=== PATIENT | male | born 1940 | race Caucasian/White ===

== ENCOUNTER → 2016-08-02 | Outpatient (CLI) | payer OTHER | LOC: BHLMT 11:00 | PROVIDERS: ATTEND Internal Medicine Cardiovascular Disease | DX: I63.9 Cerebral infarction, unspecified (principal); I25.10 Atherosclerotic heart disease of native coronary artery without angina pectoris; I10 Essential (primary) hypertension; E78.00 Pure hypercholesterolemia, unspecified | CPT/HCPCS: 93005-PO ==

== ENCOUNTER → 2017-02-06 | Outpatient (CLI) | payer OTHER ==
[~2017-02-06] MED LIST: IOPAMIDOL (ISOVUE 370) 100 ML BTL IV ONE
== END ==
LOC: FIMAGING 14:59
PROVIDERS: ATTEND Internal Medicine Cardiovascular Disease
DX: I25.10 Atherosclerotic heart disease of native coronary artery without angina pectoris (principal); R25.2 Cramp and spasm
CPT/HCPCS: 75635; Q9967

== ENCOUNTER → 2017-03-24 | Outpatient (CLI) | payer OTHER | LOC: FIMAGING 13:37 | PROVIDERS: ATTEND Surgery | DX: I83.93 Asymptomatic varicose veins of bilateral lower extremities (principal) ==

== ENCOUNTER 2017-04-18 06:33 | Inpatient (IN) | payer OTHER ==
--- NOTE | 2017-04-17 11:07 | GHP ---
[f rep st] PREOP HISTORY AND PHYSICAL DATE OF ADMISSION: 04/18/2017 HISTORY OF PRESENT ILLNESS: The patient is a 76-year-old male who was referred to us for peripheral arterial disease. Several months ago, patient began to experience right greater than left calf pain, most notably while playing pickle ball. The pain was relieved by rest. The patient does notice nitin e leg pain versus leg cramps at night, particularly when he has not hydrated well. Per chart review, his symptoms were initially thought to be secondary to a statin therapy; however, did not resolve af ter stopping his atorvastatin. He was then scheduled for a CT angiogram. This was notable for sever e bilateral lower extremity peripheral vascular disease. Specifically, he had a high-grade 90% steno sis of the distal left common femoral artery to near occlusion. There was moderate stenosis of the r ight common femoral artery at 50%. He had segmental disease throughout his SFAs. He had mild athero sclerotic calcification of the popliteal arteries with 3-vessel runoff on the right and 2-vessel runo ff on the left. Since then, he has also had preoperative vein mapping for potential saphenous graft harvesting. On t he right lower extremity, his saphenous vein measured between 2.3 and 6 mm and on the left measured b etween 1.8 and 7 mm. There were also some venous varicosities seen at and below the right knee and i n the left groin and thigh. He is now ready to pursue bilateral femoral-popliteal artery bypass with possible reverse saphenous v ein graft versus synthetic Impra graft. His disease is worse on the left, and so we will begin with the left fem-pop. Right fem-pop will be postponed for a later date. Risks and options have been ful ly discussed including but not limited to bleeding, infection, leg ischemia, limb loss, clotting, nee d for revision and/or other surgery, injury to a nerve, damage to surrounding structures, and other p roblems, and he requests to proceed. PAST MEDICAL HISTORY: Again taken from patient and chart review includes bladder cancer, chronic bro nchitis, history of cerebrovascular accident, coronary artery disease with an isolated LAD lesion whi ch could not be angioplastied and collaterals have been documented, depression, hypercholesteremia, h ypertension, hypothyroidism, lumbar spine pain, orthostatic hypotension. PAST SURGICAL HISTORY: Includes cystectomy, ileal conduit creation, septoplasty, tonsillectomy, sania oidectomy. Also, past procedures include colonoscopy and EGDs. MEDICATIONS: Include aspirin, dipyridamole, levothyroxine, Lipitor. ALLERGIES: Plavix, Levaquin, prednisone, tramadol. FAMILY MEDICAL HISTORY: Prostate cancer. SOCIAL HISTORY: The patient is a former tobacco smoker with 28 pack-years, quit in 1988. He is a cu rrent some day smoker. He has 2 children. He is retired from a job in data processing. REVIEW OF SYSTEMS: Negative aside from that in the HPI. PHYSICAL EXAMINATION: GENERAL: Reveals a 76-year-old male, alert and oriented x3 and in no acute di stress. HEENT: Normocephalic, atraumatic. No scleral icterus. CHEST: Clear to auscultation bilat erally without murmurs. ABDOMEN: Soft, nontender. Ileal conduit. RESPIRATORY: Clear to auscultat ion bilaterally. SKIN: Warm and dry. EXTREMITIES: Lower extremity hair loss. No edema. Audible pulses with Doppler. PSYCH: Normal mood and affect. IMPRESSION: This is a 76-year-old male with limiting claudication, symptomatically right worse than left, but radiologically left worse than right. PLAN: Plan is to proceed with bilateral femoral-popliteal bypasses with possible saphenous vein marquis ts. Again, we will start with the left side, and he will plan for right leg surgery at a later date. Risks and options have been discussed, and he requests to proceed. Seen and examined with Dr. Liang. /[id number]/MODL
[2017-04-18] MEDS ORDERED: ceFAZolin 2 GM/SWFI 2 GM/20 ML SYR IVP ONE (06:38)
[2017-04-18] MEDS ORDERED: LR 1,000 ML IV ONE (06:40)
[2017-04-18] MEDS ORDERED: LIDOCAINE 1% 2 ML INJ ID PRN (06:40)
[2017-04-18] MEDS ORDERED: PROTAMINE SULFATE 50 MG/5 ML VIAL IVP ONE (07:45)
[2017-04-18] MEDS ORDERED: THROMBIN (BOVINE) 20,000 UNIT SPRAY TP ONE (07:45)
[2017-04-18] MEDS ORDERED: PAPAVERINE HCL 60 MG/2 ML SDV ONE (07:45)
[2017-04-18] MEDS ORDERED: BUPIVACAINE 0.5% 10 ML SDV ONE (07:46)
[2017-04-18] MEDS ORDERED: IOTHALAMATE MEG (CONRAY) 50 ML VIAL IV ONE (07:46)
--- NOTE | 2017-04-18 07:54 | PDHPUP ---
History & Physical Update H&P update statement: This history and physical update is based on an assessment of the patient which was completed after admission or registration (within 24 hours), but prior to the surgery/procedure. H&P update: H&P reviewed & patient examined, no change in patient's condition since H&P completed
[2017-04-18 08:01] LABS: PLATELET COUNT 213 10^3/uL (150-400)
--- NOTE | 2017-04-18 08:05 | PDANEPAE ---
ANE History of Present Illness 76 yo for fem-pop ANE Past Medical History - Cardiovascular History Hx Hypertension: No Hx Arrhythmias: No Hx Chest Pain: No Hx Coronary Artery / Peripheral Vascular Disease: Yes Hx CHF / Valvular Disease: No Hx Palpitations: No Cardiovascular History Comment: 1999, 100% LAD good collateral circulation, no Stent. - Pulmonary History Hx COPD: Yes Hx Asthma/Reactive Airway Disease: No Hx Recent Upper Respiratory Infection: No Hx Oxygen in Use at Home: No Hx Sleep Apnea: No Sleep Apnea Screening Result - Last Documented: Negative Pulmonary History Comment: Unknown regarding COPD, though pt says was told by another MD that he has it - Neurologic History Hx Cerebrovascular Accident: Yes Hx Seizures: No Hx Dementia: No Neurologic History Comment: CVA 09/19/2010 during the night, had Left sided facial weakness. minorissues with - Endocrine History Hx Diabetes: No - Renal History Hx Renal Disorders: Yes Renal History Comment: Bladder Cancer - surgery to include prostatectomy 2010. Urostomy with surgery - Liver History Hx Hepatic Disorders: No - Neurological & Psychiatric Hx Hx Neurological and Psychiatric Disorders: Yes Neurological / Psychiatric History Comment: Some situational depression with recent Lung Nodule diagnosis. neuropathy, tremor - Cancer History Hx Cancer: Yes Cancer History Comment: Bladder. Question Right Lung Nodule - to be diagnosed with biopsy - Congenital Disorder History Hx Congenital Disorders: No - GI History Hx Gastrointestinal Disorders: No Gastrointestinal History Comment: Colostomy 02/2015 negative findings - Other Health History Other Health History: 04/2013 Pyeloidal Cyst. right hand bruising. 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 11/11/2010 & 05/25/2010 : TURBP. 1974 Septoplasty. 194 T&A ANE Review of Systems Review of Systems: - Exercise capacity METS (RN): 5 METS ANE Patient History - Allergies Allergies/Adverse Reactions: clopidogrel Allergy (Unknown, Verified 04/18/17 07:01) levofloxacin [From Levaquin] Allergy (Unknown, Verified 04/17/17 13:33) prednisone Allergy (Unknown, Verified 04/17/17 13:34) tramadol Allergy (Unknown, Verified 04/17/17 13:34) - Home Medications Home medications: home medication list seen and reviewed Home Medications: Aspirin [Aspirin 81mg (*)] 11/05/13 [Last Taken 04/17/17] Atorvastatin Calcium [Lipitor 40 mg (*)] 11/05/13 [Last Taken 04/18/17 05:00] Dipyridamole 11/05/13 [Last Taken 04/17/17] Herbals/Supplements -Info Only 11/05/13 [Last Taken 04/17/17] Levothyroxine [Synthroid 50 mcg (*)] 11/05/13 [Last Taken 04/18/17 05:00] [place]-3 Fatty Acids [Fish Oil 1000 mg (*)] 11/05/13 [Last Taken 03/17/17] - NPO status NPO Status: no food or drink >8 hours NPO Since - Liquids (Date): 04/18/17 NPO Since - Liquids (Time): 05:00 NPO Since - Solids (Date): 04/17/17 NPO Since - Solids (Time): 19:00 - Anes Hx Anes Hx: no prior problems - Smoking Hx Smoking Status: Former smoker - Family Anes Hx Family Hx Anesthesia Complications: none ANE Labs/Vital Signs - Labs Result Diagrams: 04/18/17 07:18 04/18/17 07:18 - Vital Signs Blood Pressure: 143/77 Heart Rate: 57 Respiratory Rate: 16 O2 Sat (%): 96 Height: 6 ft 2 in Weight: 78.018 kg ANE Physical Exam - Airway Neck exam: FROM Mallampati Score: Class 2 Mouth exam: normal dental/mouth exam - Pulmonary Pulmonary: no respiratory distress - Cardiovascular Cardiovascular: regular rate and rhythym - ASA Status ASA Status: III ANE Anesthesia Plan Anesthesia Plan: general endotracheal anesthesia
[2017-04-18] MEDS ORDERED: REMIFENTANIL HCL 1 MG VIAL ONE ×2 (08:13→10:35)
[2017-04-18] MEDS ORDERED: PROPOFOL/EMULSION 500 MG/50 ML BOTTLE IV ONE (08:14)
[2017-04-18] MEDS ORDERED: fentaNYL 250 MCG/5 ML INJ ONE (08:14)
[2017-04-18] MEDS ORDERED: PROPOFOL 200 MG/20 ML VIAL ONE (10:35)
[2017-04-18] MEDS ORDERED: HEPARIN 10,000 UNIT/10 ML MDV (1,000 UNIT/ML) ONE (11:20)
[2017-04-18] MEDS ORDERED: ceFAZolin 1 GM VIAL ONE (11:20)
[2017-04-18] MEDS ORDERED: ONDANSETRON 4 MG/2 ML VIAL ONE (11:20)
[2017-04-18] MEDS ORDERED: ROCURONIUM 50 MG/5 ML VIAL ONE (11:20)
[2017-04-18] MEDS ORDERED: PHENYLEPHRINE HCL 100 MCG/ML SYR ONE (11:28)
[2017-04-18] MEDS ORDERED: HYDROmorphONE/DILAUDID 1 MG/ML INJ IVP PRN ×2 (11:44→11:57)
[2017-04-18] MEDS ORDERED: ONDANSETRON 4 MG/2 ML VIAL IVP PRN ×2 (11:44→11:57)
[2017-04-18] MEDS ORDERED: fentaNYL 100 MCG/2 ML INJ IVP PRN (11:44)
[2017-04-18] MEDS ORDERED: NALOXONE HCL 0.4 MG/ML INJ IVP PRN (11:44)
--- NOTE | 2017-04-18 11:44 | POSTANESTH ---
Post Anesthetic Evaluation Cardiovascular Status: Normal, Stable Respiratory Status: Normal, Stable Level of Consciousness/Mental Status: Can Participate in Eval Pain Control: Adequate, Prn Tx Ordered Nausea/Vomiting Control: Adequate, Prn Tx Ordered Complications Possibly Related to Anesthesia: None Noted
[2017-04-18] MEDS ORDERED: NS W/ 20 KCl/L 1,000 ML IV SCH (12:00)
--- NOTE | 2017-04-18 12:04 | POSTOPPROG ---
Post Op Note Date of Operation: 04/18/17 Surgeon: Neal Liang Technology Support Analyst: Kadie Saravia Anesthesiologist: Babar Sauceda Anesthesia: GET(General Endotracheal) Pre-op Diagnosis: severe PAD, claudication Post-op Diagnosis: same Procedure: left fem pop bypass c impra graft and LAN ENGINEER endarterectomy and profundoplasty Findings: wide spread thick irregular calcified plaque Inf/Abcess present in the surg proc area at time of surgery?: No EBL: 50-100 Complications: none Specimen(s): plaque to pathology
[2017-04-18] MEDS ORDERED: HYDROmorphONE/DILAUDID 2 MG/ML INJ IVP PRN (12:14)
--- NOTE | 2017-04-18 15:40 | ASMTCMCOM ---
CM Note CM Note Notes: 76yr old male admitted for Occluded L femoral artery. He has a Hx of Prostate and Bladder CA, CVA, CAD, HTN, Lumbar back pain, Depression. Patient had L fem bipop surgery today and at a later date will need a R fem bipop surgery. Therapies to CELINA castrejon to follow for discharge needs. Date Signed: 04/18/2017 03:39 PM Electronically Signed By:Carrie Barba LCSW
[2017-04-18] MEDS: OXYCODONE/APAP 5/325 TAB PO PRN (23:23)
--- NOTE | 2017-04-19 10:12 | SOAPPROG ---
SOAP Progress Note Assessment/Plan: Assessment/Plan: 76 Y M s/p L fempop bypass c impra graft and endarterectomy. POD#1. Episode of hypotension and bradycardia when moved from bed to chair this am. Quickly resolved. No intervention required. Continue to monitor. Wounds intact. Graft patent--L pedal pulses are palpable. Foot is warm. PT/OT. Restrictions discussed. Appreciate labs. Suspect drop in H&H was during surgery--do not suspect active bleeding. Dispo: SDU. If BP and HR stable throughout am then transfer to [facility]. S: Not too much pain. No complaints. Motivated. O: gen: alert, nad no wob rrr abd soft inc nickel sized shadowing on distal dressing. otherwise well dressed and clean. Min swelling. feet warm. L pedal pulses palpable. 04/19/17 10:08 Objective: Vital Signs Temp Pulse Resp BP Pulse Ox 37.0 C 62 14 121/69 H 97 04/19/17 08:00 04/19/17 08:00 04/19/17 08:00 04/19/17 08:00 04/19/17 08:00 Laboratory Results 04/19/17 05:35 04/19/17 05:35 04/18/17 04/19/17 04/20/17 05:59 05:59 05:59 Intake Total 4530 Output Total 2100 Balance 2430 ICD10 Worksheet Patient Problems: Problems Problem Status Onset Carcinoma of bladder Active
[2017-04-19] MEDS ORDERED: BISACODYL 10 MG SUPP PR PRN (11:18)
--- NOTE | 2017-04-19 15:25 | ASMTCMCOM ---
CM Note CM Note Notes: Met with patient to begin conversation about d/c planning - he is POD #1 L fem/pop bypass. Initial PT eval suggests inpatient rehab, but I do not anticipate that patient will need that level of care. His plan is to d/c home w friends (one being his ex ) and stay with them until 05/02. One of the roommates has DME including a 4WW and shower bench. Case Management will continue to assess patient's needs on a daily basis. Date Signed: 04/19/2017 03:24 PM Electronically Signed By:Marie Caldera RN
[2017-04-19] MEDS: DOCUSATE SODIUM 100 MG CAP PO SCH (20:59)
[2017-04-20] MEDS: OXYCODONE/APAP 5/325 TAB PO PRN ×2 (03:35→23:55)
--- NOTE | 2017-04-20 08:44 | SOAPPROG ---
SOAP Progress Note Assessment/Plan: Assessment: sp left fempop/ doing well/ pulses good/ wounds ok/ pain control ok Plan:pt and rehab eval 04/20/17 08:42 Objective: Vital Signs Temp Pulse Resp BP Pulse Ox 36.8 C 57 L 18 128/71 H 92 04/20/17 07:50 04/20/17 07:50 04/20/17 07:50 04/20/17 07:50 04/20/17 07:50 Laboratory Results 04/19/17 05:35 04/19/17 05:35 04/19/17 04/20/17 04/21/17 05:59 05:59 05:59 Intake Total 4530 550 Output Total 9028 7441 150 Balance 8925 -0355 -229 ICD10 Worksheet Patient Problems: Problems Problem Status Onset Carcinoma of bladder Active
[2017-04-20] MEDS: ENOXAPARIN 40 MG/0.4 ML SYR SC SCH (09:30)
[2017-04-20] MEDS: DOCUSATE SODIUM 100 MG CAP PO SCH ×2 (09:30→20:52)
--- NOTE | 2017-04-20 12:46 | ASMTCMCOM ---
CM Note CM Note Notes: 04/20/2017 Case Management Note Met w/pt. Pt living with friend Ruddy Vegas [phone] temporarily with plans to move to [place] in the middle of April. Pt has support from Henri Sharma [phone] and from Wilfredo Sharma [phone]. OT recommending SNF. PT recommending Inpatient Rehab as of yesterday. Notified Yasmine of referral at inpatient rehab. Discussed with pt. Discussed need for SNF rehab if inpatient rehab is not able to take pt. Pt in agreement Faxed ref[facility] and [facility]. Case Management d/c poc: SNF rehab pending acceptance. Case Management to follow. Date Signed: 04/20/2017 12:45 PM Electronically Signed By:Denisse Alford RN
[2017-04-21] MEDS: ENOXAPARIN 40 MG/0.4 ML SYR SC SCH (09:51)
[2017-04-21] MEDS: DOCUSATE SODIUM 100 MG CAP PO SCH ×2 (09:51→20:59)
--- NOTE | 2017-04-21 10:00 | SOAPPROG ---
SOAP Progress Note Assessment/Plan: Assessment: Assessment/Plan: 76 Y M s/p L fempop bypass c impra graft and endarterectomy. S: Eager to go home. Pain is well controlled. Getting out of bed without issue O: Afebrile Alert No wob abdomen soft left leg: incisions cdi, pedal pulses palpable, feet warm Plan: Discharge today, pending SNF placement. 04/21/17 10:01 Objective: Vital Signs Temp Pulse Resp BP Pulse Ox 36.6 C 72 16 116/74 92 04/21/17 08:00 04/21/17 08:00 04/21/17 08:00 04/21/17 08:00 04/21/17 08:00 Laboratory Results 04/19/17 05:35 04/19/17 05:35 04/20/17 04/21/17 04/22/17 05:59 05:59 05:59 Intake Total 550 400 Output Total 8523 3357 Balance -4377 -567 ICD10 Worksheet Patient Problems: Problems Problem Status Onset Carcinoma of bladder Active
--- NOTE | 2017-04-21 13:49 | PDIAF ---
- Diagnosis Code Status: Full Code - Medication Management Discharge Medications: Medications to Continue on Transfer Aspirin [Aspirin 81mg (*)] 81 mg PO DAILY 11/05/13 [Last Taken 04/17/17] Atorvastatin Calcium [Lipitor 40 mg (*)] 80 mg PO DAILY 11/05/13 [Last Taken 05:00] Dipyridamole 75 mg PO TID 11/05/13 [Last Taken 04/17/17 21:00] Herbals/Supplements -Info Only 1 each PO DAILY 11/05/13 [Last Taken 04/17/17] Levothyroxine [Synthroid 50 mcg (*)] 50 mcg PO DAILY06 11/05/13 [Last Taken ] Multivitamins [Multivitamin (*)] 1 each PO DAILY 04/18/17 [Last Taken 04/17/17] Discharge Medications: Refer to the Discharge Home Medication list for PRN reason. PICC Care - Routine: N/A - Orders Services needed: Registered Nurse, Physical Therapy, Occupational Therapy Isolation Type: None Diet Recommendation: no restrictions on diet Diet Texture: Regular Texture Diet Weigh Patient: weekly Ambrocio: Not applicable Activity/Weight Bearing Restrictions: He can ambulate without restrictions - Follow Up Care Current Providers and Referrals: Kwasi Stein MD [Primary Care Provider] - Neal Liang MD [Medical Doctor] - (Follow up in our office in 7-10 days.)
--- NOTE | 2017-04-21 17:31 | ASMTCMCOM ---
CM Note CM Note Notes: Spoke w/surgical LIME PULLER Selena, pt unable to go to [facility] today d/t no bed availability. Will have bed tomorrow, pt notified and discussed with RN, Surgery to cancel discharge. DC Plan: SNF/[facility] Date Signed: 04/21/2017 05:31 PM Electronically Signed By:Marion Laboy RN
--- NOTE | 2017-04-21 17:34 | GOP ---
[f rep st] OPERATIVE REPORT DATE OF OPERATION: 04/18/2017 SURGEON: Neal Liang MD CHILDCARE AIDE: AVEL Restrepo. PREOPERATIVE DIAGNOSIS: Occluded superficial femoral artery on the left with severe critical stenosis of the left common femoral artery. POSTOPERATIVE DIAGNOSIS: same PROCEDURE PERFORMED: Left iliofemoral bypass with profundoplasty, and common femoral artery endarterectomy. FINDINGS: The patient was found to have a soft popliteal artery in the proximal popliteal space, but the SFA and proximal popliteal were completely occluded. The common femoral was nearly completely occluded with severe calcified plaque extending up to the external iliac artery. At the completion of the procedure, he had palpable pedal pulses. DESCRIPTION OF PROCEDURE: The patient was brought to the operating room where he received satisfactory general endotracheal anesthesia. He was placed in supine position with both legs prepped and draped in usual sterile fashion. A short incision was made in the left groin. Dissection extended down through subcutaneous tissue, the superficial fascia. The common femoral, profunda femoris and external iliac were all dissected free and encircled with Vesseloops. This required partial division of the inguinal ligament, but it was required for proximal control above the plaque as well as getting an open vessel. The common femoral artery was completely calcified and nearly totally occluded. A 2nd incision was made in the distal thigh in the Milton's canal, carried carefully down, avoiding any injury to the saphenous vein. The popliteal artery was dissected free and controlled with Vesseloops. Dissection extended down behind the knee until the soft portion of the popliteal artery was identified, and this vessel was controlled with Vesseloops. After adequate exposure was achieved, the patient was systemically heparinized. The vessels were occluded at the groin level and the arteriotomy was made in the common femoral artery. This extended up into the external iliac artery and down to the profunda femoris artery. The endarterectomy was then done with removal of a large amount of plaque in continuity. This extended down to the origin of the profunda, which was endarterectomized as well, establishing back flow through the profunda. The plaque was removed. All vessels were flushed and appeared to have adequate inflow and adequate backflow from the profunda femoris artery. At that point, an 8-5 graduated Impra graft was then selected. It was secured to the profunda femoris and common femoral artery as a profundoplasty and anterior closure with a running Hemashield 6 suture. After completion of the suture line, all vessels were flushed. The bypass graft was crossclamped and flow was first established to the [place] SFA and then back down to the profunda femoris. The suture line appeared to be hemostatic except for [address] that was corrected with interrupted 6-0 Prolene suture. The bypass graft was then tunneled subsartorially down to the Milton's canal, at which point it was trimmed to the appropriate length and an end-to-side anastomosis was made to the popliteal artery which had been opened for 1.5 cm. This suture line was also done with a Hemashield 6 suture. Flow was then reestablished through the bypass graft, and a pulsatile flow was established in the popliteal artery below the knee as well as palpable pedal pulses eventually could be felt. The suture lines appeared to be hemostatic. Heparin was reversed with protamine. The wounds were sprayed with some topical thrombin and then closed in multiple layers using 2-0 Vicryl for the fascia, 3-0 Vicryl for the subcu and 4-0 Monocryl subcuticular stitch for the skin. All layers were infiltrated with 0.5% Marcaine. The wounds were dressed. He tolerated the procedure well, was taken to the recovery room in good condition. There were no complications. /[id number]/MODL MTDD
[2017-04-22 04:55] VITALS: O2SAT 94
--- NOTE | 2017-04-22 08:36 | PDIAF ---
- Diagnosis Diagnosis: s/p L fem pop Code Status: Full Code - Medication Management Discharge Medications: Medications to Continue on Transfer Aspirin [Aspirin 81mg (*)] 81 mg PO DAILY 11/05/13 [Last Taken 04/17/17] Atorvastatin Calcium [Lipitor 40 mg (*)] 80 mg PO DAILY 11/05/13 [Last Taken 05:00] Dipyridamole 75 mg PO TID 11/05/13 [Last Taken 04/17/17 21:00] Herbals/Supplements -Info Only 1 each PO DAILY 11/05/13 [Last Taken 04/17/17] Levothyroxine [Synthroid 50 mcg (*)] 50 mcg PO DAILY06 11/05/13 [Last Taken ] Multivitamins [Multivitamin (*)] 1 each PO DAILY 04/18/17 [Last Taken 04/17/17] Discharge Medications: Refer to the Discharge Home Medication list for PRN reason. PICC Care - Routine: N/A - Orders Services needed: Registered Nurse, Physical Therapy, Occupational Therapy Isolation Type: None Diet Recommendation: no restrictions on diet Diet Texture: Regular Texture Diet Weigh Patient: weekly Ambrocio: Not applicable Activity/Weight Bearing Restrictions: He can ambulate without restrictions - Follow Up Care Current Providers and Referrals: Neal Liang MD [Medical Doctor] - (Follow up in our office in 7-10 days.) Kwasi Stein MD [Primary Care Provider] -
--- NOTE | 2017-04-22 08:39 | PDDCSUM ---
Discharge Summary Discharge Summary: DISCHARGE SUMMARY Date of Admission April 18 Date of Discharge April 22 DISCHARGE DIAGNOSES -life limiting claudication HOSPITAL COURSE The patient was admitted and taken to the operating room on the where he underwent uneventful left femoral popliteal bypass. They were subsequently taken to the PACU and then the general medical floor. The hospital course was uneventful, their diet was advanced to a regular diet which was well tolerated and their pain was well controlled. He had consultations from both Physical and Occupational therapy who is request [facility]. He was subsequently discharged there in stable condition on the morning of the . DISCHARGE MEDICATIONS All home medications restarted, patient was taking [id number] ibuprofen as needed for pain DISPOSITION [facility] FOLLOW UP Follow up with Dr. Liang in the office in 10-14 days for a general post- operative visit
[2017-04-22] MEDS: ENOXAPARIN 40 MG/0.4 ML SYR SC SCH (09:13)
[2017-04-22] MEDS: DOCUSATE SODIUM 100 MG CAP PO SCH (09:13)
--- NOTE | 2017-04-22 10:36 | ASMTLACE ---
JORDANE Length of stay for Answers: 4-6 days current admission Acuity / Level of Answers: Yes Care: Did the patient have an inpatient admission? Comorbidities - select Answers: Any tumor (including all that apply lymphoma or leukemia) Cerebrovascular disease (CVA, TIA, aneurysms, vasc ular dementia) Chronic pulmonary disease Coronary Atery Disease Peripheral vascular disease # of Emergency department Answers: 0 visits in the last 6 months Social determinants Answers: Mental health diagnosis (anxiety, depression, pers onality disorders, etc.) Score: 18 Date Signed: 04/22/2017 10:35 AM Electronically Signed By:Marion Laboy RN
[2017-04-22 12:41] VITALS: BP 119/65; PULSE 71; RESP 16; TEMP 98.3
--- NOTE | 2017-04-22 17:50 | ASDISCHSUM ---
Discharge Information Plan Status:SNF Medically Cleared to Leave: Discharge Date:04/22/2017 03:56 PM CM D/C Disposition:Half-Way Facility ADT D/C Disposition:Half-Way Facility Projected Discharge Date:04/22/2017 11:00 AM Transportation at D/C:Wheelchair Van Discharge Delay Reason: Follow-Up Date:04/22/2017 11:00 AM Discharge Slot: Final Diagnosis: Occlusion L Femoral Artery Placement Information Referral Type:*Retirement/SNF Referral ID:[facility]-[id number] Provider Name:Polina Capps Address 1:[address] [facility] Phone Number: Address 2: Fax Number: City:[place] Selection Factors: State:[place] Patient Contact Information Contact Name:SUSANA Relationship:Son Address:[address] [place] [address] Work Phone: City:[facility] Alternate Phone: State/[facility] Code:[place] [address] Email: Financial Information Financial Class:Medicare Primary Plan Desc:MEDICARE INPATIENT Primary Plan Number:[id number] Secondary Plan Desc:JELLY Secondary Plan Number:[id number] Assessment Information LACE LACE Length of stay for Answers: 4-6 days current admission Acuity / Level of Answers: Yes Care: Did the patient have an inpatient admission? Comorbidities - select Answers: Any tumor (including all that apply lymphoma or leukemia) Cerebrovascular disease (CVA, TIA, aneurysms, vasc ular dementia) Chronic pulmonary disease Coronary Atery Disease Peripheral vascular disease # of Emergency department Answers: 0 visits in the last 6 months Social determinants Answers: Mental health diagnosis (anxiety, depression, pers onality disorders, etc.) Score: 18 Date Signed: 04/22/2017 10:35 AM Electronically Signed By:Marion Laboy RN [facility] CM Progress Note CM Note CM Note Notes: 76yr old male admitted for Occluded L femoral artery. He has a Hx of Prostate and Bladder CA, CVA, CAD, HTN, Lumbar back pain, Depression. Patient had L fem bipop surgery today and at a later date will need a R fem bipop surgery. Therapies to [facility] castrejon to follow for discharge needs. Date Signed: 04/18/2017 03:39 PM Electronically Signed By:Carrie Barba LCSW [facility] CEL[facility] Progress Note CM Note CM Note Notes: Met with patient to begin conversation about d/c planning - he is POD #1 L fem/pop bypass. Initial PT cash suggests inpatient rehab, but I do not anticipate that patient will need that level of care. His plan is to d/c home w friends (one being his ex ) and stay with them until 05/02. One of the roommates has DME including a 4WW and shower bench. Case Management will continue to assess patient's needs on a daily basis. Date Signed: 04/19/2017 03:24 PM Electronically Signed By:Marie Caldera RN [facility] Progress Note CM Note CM Note Notes: 04/20/2017 Case Management Note Met w/pt. Pt living with friend Ruddy Vegas [phone] temporarily with plans to move to [place] in the middle of April. Pt has support from Henri Sharma [phone] and from Wilfredo Sharma [phone]. OT recommending SNF. PT recommending Inpatient Rehab as of yesterday. Notified Yasmine of referral at inpatient rehab. Discussed with pt. Discussed need for SNF rehab if inpatient rehab is not able to take pt. Pt in agreement Faxed referrals to [facility] and [facility]. Case Management d/c poc: SNF rehab pending acceptance. Case Management to follow. Date Signed: 04/20/2017 12:45 PM Electronically Signed By:Denisse Alford RN [facility] CM Progress Note CM Note CM Note Notes: Spoke w/surgical DATA WAREHOUSE ARCHITECT Selena, pt unable to go to [facility] today d/t no bed availability. Will have bed tomorrow, pt notified and discussed with RN, Surgery to cancel discharge. DC Plan: SNF/Power[facility] Date Signed: 04/21/2017 05:31 PM Electronically Signed By:Marion Laboy RN Case Management Discharge Plan Note Case Management Discharge Discharge Order Complete? Answers: Yes Patient to Obtain Answers: Other Notes: [facility] Medications Transportation Arranged Answers: Other Notes: [facility]/ Transport will Pick (Date 04/22/2017 04:00 PM & Time) Faxed Final Orders Answers: Yes Discharge Comments Notes: D/w RN, final orders faxed, Viktoriya at [facility] notified, RN to call report. Date Signed: 04/22/2017 10:39 AM Electronically Signed By:Marion Laboy RN Intervention Information Intervention Type:*IM-Signed Date of Service:04/21/2017 02:16 PM Patient Type:Inpatient Staff Member:Karena Lugo Hours: Discipline: Severity: Comment:
== END 2017-04-22 15:56 | DRG 254 ==
LOC: F3E 06:33 → F2N 12:03 → F3E 04-19 16:59
PROVIDERS: ADMIT Surgery; ATTEND Surgery
PROC: 041L0JL Bypass Left Femoral Artery to Popliteal Artery with Synthetic Substitute, Open Approach (ICD-10-PCS; principal; 2017-04-18 08:15)
PROC: 04CL0ZZ Extirpation of Matter from Left Femoral Artery, Open Approach (ICD-10-PCS; principal; 2017-04-18 08:15)
DX: I70.212 Atherosclerosis of native arteries of extremities with intermittent claudication, left leg (principal); I77.1 Stricture of artery; I25.10 Atherosclerotic heart disease of native coronary artery without angina pectoris; E78.00 Pure hypercholesterolemia, unspecified; I10 Essential (primary) hypertension; E03.9 Hypothyroidism, unspecified; F17.210 Nicotine dependence, cigarettes, uncomplicated; Z86.73 Personal history of transient ischemic attack (TIA), and cerebral infarction without residual deficits; Z85.51 Personal history of malignant neoplasm of bladder
CPT/HCPCS: 97116-GP; 97161-GP; 97165-GO; 97535-GO; C1768; G8978-GP-CJ; G8979-GP-CH; G8987-GO-CK; G8988-GO-CI; J0690; J1644; J1650; J2370; J2405; J2440; J2704; J2720; J3010; Q9961

== ENCOUNTER → 2017-05-10 | Outpatient (CLI) | payer OTHER ==
[~2017-05-10] MED LIST changes: -IOPAMIDOL (ISOVUE 370) 100 ML BTL IV ONE; +IOPAMIDOL (ISOVUE-300) 100 ML BTL ONE
== END ==
LOC: CIMAGING 11:27
PROVIDERS: ATTEND Urology
DX: I25.10 Atherosclerotic heart disease of native coronary artery without angina pectoris (principal); R93.8 Abnormal findings on diagnostic imaging of other specified body structures; I70.0 Atherosclerosis of aorta; K80.20 Calculus of gallbladder without cholecystitis without obstruction; K76.9 Liver disease, unspecified; M51.36 Other intervertebral disc degeneration, lumbar region; M51.37 Other intervertebral disc degeneration, lumbosacral region; Z85.51 Personal history of malignant neoplasm of bladder; Z95.820 Peripheral vascular angioplasty status with implants and grafts; Z93.2 Ileostomy status
CPT/HCPCS: 74178; Q9967

== ENCOUNTER → 2017-07-05 | Outpatient (CLI) | payer OTHER | LOC: CIMAGING 10:12 | PROVIDERS: ATTEND Internal Medicine Critical Care Medicine | DX: R91.1 Solitary pulmonary nodule (principal); J43.2 Centrilobular emphysema; I25.10 Atherosclerotic heart disease of native coronary artery without angina pectoris; K80.20 Calculus of gallbladder without cholecystitis without obstruction | CPT/HCPCS: 71250-PO ==

== ENCOUNTER 2017-08-04 07:29 | Observation (INO) | payer OTHER ==
[2017-08-04] MEDS ORDERED: FAMOTIDINE 20 MG TAB PO ONE (07:33)
[2017-08-04] MEDS ORDERED: diphenhydrAMINE 25 MG CAP PO ONE ×2 (07:33→08:22)
[2017-08-04] MEDS ORDERED: DIAZEPAM 5 MG TAB PO ONE (07:33)
[2017-08-04] MEDS ORDERED: ASPIRIN EC 325 MG TAB PO ONE ×2 (07:33→08:23)
[2017-08-04] MEDS ORDERED: NS 1,000 ML IV ONE (07:33)
--- NOTE | 2017-08-04 07:54 | CPEKG ---
Heart Rate: 62 RR Interval: 968 P-R Interval: 168 QRSD Interval: 96 QT Interval: 388 QTC Interval: 394 P [place]: 81 QRS [place]: 71 T Wave [place]: 71 EKG Severity - NORMAL ECG - EKG Impression: SINUS RHYTHM Electronically Signed By: Donnie Patel 04-Aug-2017 17:18:26
[2017-08-04 08:21] LABS: PLATELET COUNT 192 10^3/uL (150-400)
[2017-08-04] MEDS ORDERED: FAMOTIDINE 20 MG TAB ONE (08:23)
[2017-08-04] MEDS ORDERED: DIAZEPAM 5 MG TAB ONE (08:23)
[2017-08-04 08:39] LABS: INR 1.28 (0.83-1.16); PROTIME(PATIENT) 16.2 SEC (12.0-15.0)
--- NOTE | 2017-08-04 10:49 | PDPROPOC ---
Sedation Plan of Care Sedation Plan of Care: vital signs stable, mental status noted, patient educated of risks, benefits, alternatives, patient can tolerate sedation ASA Classification: ASA 2 Planned drugs: fentanyl, midazolam Mallampati Score: Class 2 Mallampati Reference Image: Patient passed 3-3-2 rule?: Yes
[2017-08-04] MEDS ORDERED: HEPARIN 10,000 UNIT/10 ML MDV (1,000 UNIT/ML) ONE (11:02)
[2017-08-04] MEDS ORDERED: LIDOCAINE 1% 300 MG/30 ML SDV ONE (11:02)
[2017-08-04] MEDS ORDERED: fentaNYL 100 MCG/2 ML INJ ONE (11:02)
[2017-08-04] MEDS ORDERED: MIDAZOLAM 2 MG/2 ML VIAL ONE (11:02)
[2017-08-04] MEDS ORDERED: IOPAMIDOL (ISOVUE-300) 150 ML BTL ONE ×2 (11:03→12:29)
[2017-08-04] MEDS ORDERED: ACETAMINOPHEN 325 MG TAB PO PRN (13:12)
[2017-08-04] MEDS ORDERED: LORazepam 2 MG/ML INJ IVP PRN (13:13)
[2017-08-04] MEDS ORDERED: TEMAZEPAM 15 MG CAP PO PRN (13:13)
[2017-08-04] MEDS ORDERED: ATROPINE SULFATE 1 MG/10 ML SYR IVP PRN (13:13)
[2017-08-04] MEDS ORDERED: ONDANSETRON 4 MG/2 ML VIAL IVP PRN (13:13)
[2017-08-04] MEDS ORDERED: TICAGRELOR 90 MG TAB PO ONE (13:13)
--- NOTE | 2017-08-04 13:40 | CPIP ---
[f rep st] INVASIVE CARDIAC PROCEDURE DATE OF PROCEDURE: 08/04/2017 PROCEDURE: 1. Abdominal aortography. 2. Right lower extremity angiography via contralateral approach with catheter placed in the right ex ternal iliac artery. 3. Left lower extremity angiography with catheter placed in the left common iliac artery. 4. Stenting of left common iliac artery with an 8.0 x 27 biliary Express stent. INDICATION: Lifestyle limiting claudication. ACCESS: Patient was prepped and draped in sterile fashion. 1% lidocaine was used to anesthetize the left inguinal region. A 6-Cuban introducer sheath was placed selectively in the left common femora l artery via modified Seldinger technique. Abdominal aortography, a 6-Cuban pigtail catheter was placed in the distal abdominal aorta and posit ion verified by angiography. Images were obtained via power injection through the [employer] system. Th e abdominal aorta gave rise to a single right renal artery as well as a single left renal artery. Th e renal arteries were free of any significant disease. Below the renal arteries the distal abdominal aorta was diffusely diseased with stenosis approaching 20% in severity. The distal abdominal aorta then bifurcated into the left and right common iliac arteries. Right lower extremity angiography via contralateral approach with catheter placed in the right external iliac artery. A 5-Cuban Contra-2 catheter was advanced into the distal abdominal aorta and reformed into its usual position. The 5-F rench Contra-2 catheter was used to selectively engage the right common iliac artery. The right comm on iliac artery bifurcated into the internal iliac artery and the external iliac artery. The right c ommon iliac artery had a proximal 20% stenosis present. The right internal iliac artery was diffusel y diseased in the proximal mid segments with stenosis approaching 50% in severity. The right externa l iliac artery was free of any significant disease. The 5-Cuban Contra-2 catheter was then advanced into the right external iliac artery over a guidewire. Images were then obtained via hand injection through the 5-Cuban Contra-2 catheter. The right external iliac artery turned into the common femo ral artery. The common femoral artery then bifurcated into the superficial femoral artery and profun da femoral arteries. The right common femoral artery is diffusely diseased. In the mid section of t he vessel there is an eccentric 70% stenosis present. In the distal vessel there is a 100% occlusion at the takeoff of the superficial femoral artery and profunda femoral artery. The superficial femor al artery and profunda femoral artery reconstitute via collaterals. The superficial femoral artery h ad sequential 30% stenosis in the midvessel. The popliteal artery had a discrete 20% stenosis in the mid vessel. Below the knee, there was 3 vessel runoff. Left lower extremity angiography with julio ter placed in the left common iliac artery. A straight flush catheter was placed in the left common iliac artery and position verified by angiography. Images were obtained via hand injection. The lef t common iliac artery bifurcated into the internal iliac artery and external iliac arteries. The com mon iliac artery had a proximal 80% to 90% stenosis with approximately 30-40 mm gradient across the A V. The left common iliac artery then bifurcated into the internal iliac artery and external iliac ar teries. The left internal iliac artery had an ostial 80% stenosis present. The left external iliac artery was free of any significant disease. The left external iliac artery went into a fem-pop bypas s graft. Intervention of the left common iliac artery, an 0.035 J-wire was placed in the distal abdominal aort a and position verified by angiography. An 8.0 x 27 mm biliary Express stent was placed across the c ommon iliac lesion and deployed. Followup angiography demonstrated 20% residual stenosis. No signif icant gradient on pullback. COMPLICATIONS: None. CONCLUSIONS: 1. 100% right common femoral artery stenosis at the bifurcation of the superficial and profunda femo ral arteries. 2. 80% to 90% left common iliac artery stenosis. 3. Status post successful stenting of the left common iliac artery with an 8.0 x 27 mm biliary Expre ss stent. 4. Consider endarterectomy for the right common femoral artery. /[id number]/MODL
[2017-08-04] MEDS: DIPYRIDAMOLE 75 MG PO SCH ×2 (16:43→20:42)
[2017-08-04] MEDS: TICAGRELOR 90 MG TAB PO SCH (22:05)
[2017-08-05 04:12] LABS: PLATELET COUNT 184 10^3/uL (150-400)
[2017-08-05] MEDS ORDERED: LEVOTHYROXINE 50 MCG TAB PO SCH (06:00)
[2017-08-05 08:05] VITALS: BP 107/60
[2017-08-05] MEDS ORDERED: ASPIRIN 81 MG CHEWABLE TAB PO SCH (09:00)
[2017-08-05] MEDS ORDERED: MULTIVITAMINS 1 EACH TAB PO SCH (09:00)
[2017-08-05] MEDS ORDERED: ATORVASTATIN CALCIUM 40 MG TAB PO SCH (09:00)
[2017-08-05] MEDS: DIPYRIDAMOLE 75 MG PO SCH (09:06)
[2017-08-05] MEDS: TICAGRELOR 90 MG TAB PO SCH (09:09)
--- NOTE | 2017-08-05 09:47 | ASMTCMCOM ---
CM Note CM Note Notes: Dc order received. Anticipate dc home independently. CM will follow if needs/changes. Date Signed: 08/05/2017 09:46 AM Electronically Signed By:Jacquie Montalvo RN
--- NOTE | 2017-08-05 09:48 | GDS ---
[f rep st] DISCHARGE SUMMARY DISCHARGE DIAGNOSES: 1. Peripheral vascular disease, status post stenting to the left common iliac artery with an 8.0 x 2 7 mm biliary express stent for an 80% to 90% stenosis. 2. 100% right common femoral artery stenosis at the bifurcation of the superficial and profunda femo ral arteries. 3. History of left femoral-popliteal bypass grafting surgery. 4. Hyperlipidemia. 5. Coronary artery disease with known DUDE WRANGLER of his left anterior descending artery by cardiac catheter ization in 1997, without angina. Currently being treated medically. HOSPITAL COURSE: For a detailed H and P, please see prior dictation. Briefly, the patient is a 76-y ear-old male with a history of severe peripheral vascular disease. He is status post fem-pop bypass surgery on the left, but had residual disease on the right. He reports claudication with walking 1 b lock in the right lower extremity. He was admitted for angiography of the right and left lower extre mities. He was found to have 100% right common femoral artery stenosis at the bifurcation of the sup erficial and profunda femoral arteries. There was also an 80% to 90% stenosis of the left common beata ac artery. The decision was made to proceed with stenting of the left common iliac artery with an 8. 0 x 27 mm biliary express stent. The right was not intervened upon. Dr. Bolden would like to discus s further intervention with the patient as an outpatient. He would consider an endarterectomy of the right common femoral artery. The following day, the patient denied any significant groin or leg discomfort. He was monitored on t elemetry and has remained in normal sinus rhythm. PHYSICAL EXAMINATION: GENERAL: Patient appears in no acute distress. VITALS: Blood pressure 107/6 0, heart rate 65, oxygen saturation 95% on room air. Afebrile. LUNGS: Clear to auscultation. No w heezes, rhonchi, or crackles auscultated. CARDIAC: Regular rate and rhythm, without any significant murmurs, rubs, or gallops appreciated. EXTREMITIES: The left lower extremity, he has 2+ dorsalis p ran pulses and 1+ posterior tibialis. His right lower extremity, he has Doppler pulses of both the posterior tibialis and dorsalis pedis pulses. DISCHARGE MEDICATIONS: He will begin Brilinta 90 mg b.i.d. He will continue herbal supplement, Lipi tor 40 mg daily, Synthroid 50 mcg daily, aspirin 81 mg daily, multivitamin daily, Tylenol daily, and dipyridamole 75 mg t.i.d. PLAN: The patient is currently stable and ready for discharge home. He has been given groin precaut ions. He will follow up with Dr. Bolden in 1 week as scheduled. Consider endarterectomy of the righ t common femoral artery. Greater than 30 minutes was spent coordinating the patient's care today. /[id number]/MODL
--- NOTE | 2017-08-05 11:43 | ASDISCHSUM ---
Discharge Information Plan Status:Home with No Needs Medically Cleared to Leave: Discharge Date:08/05/2017 11:37 AM CM D/C Disposition:Home, Routine, Self-Care ADT D/C Disposition:Home, Routine, Self-Care Projected Discharge Date:08/05/2017 11:37 AM Transportation at D/C:Family Discharge Delay Reason: Follow-Up Date:08/05/2017 11:37 AM Discharge Slot: Final Diagnosis: Placement Information Patient Contact Information Contact Name:SUSANA Relationship:Son Address:[address] [place] [address] Work Phone: City:[facility] Alternate Phone: [facility]/Zip Code:[place] [address] Email: Financial Information Financial Class:Medicare Primary Plan Desc:MEDICARE OUTPATIENT Primary Plan Number:[id number] Secondary Plan Desc:BRIANNA Secondary Plan Number:[id number] Assessment Information BC CM Progress Note CM Note CM Note Notes: Dc order received. Anticipate dc home independently. CM will follow if needs/changes. Date Signed: 08/05/2017 09:46 AM Electronically Signed By:Jacquie Montalvo RN LACE LACE Length of stay for Answers: 1 day current admission Acuity / Level of Answers: No Care: Did the patient have an inpatient admission? Comorbidities - select Answers: Coronary Artery Disease all that apply Peripheral vascular disease # of Emergency department Answers: 0 visits in the last 6 months Score: 4 Date Signed: 08/05/2017 11:41 AM Electronically Signed By:Jacquie Montalvo RN Intervention Information Intervention Type:*IM-Signed Date of Service:08/05/2017 10:27 AM Patient Type:Observation Staff Member:DEVON Montalvo Courtney Hours: Discipline: Severity: Comment:
== END 2017-08-05 11:37 | disposition home or self-care (01) ==
LOC: FCATH 07:29 → F2W 13:13
PROVIDERS: ADMIT Internal Medicine Cardiovascular Disease; ATTEND Internal Medicine
PROC: 047 Lower Arteries, Dilation (ICD-10-PCS; principal; 2017-08-04)
PROC: B41D1ZZ Fluoroscopy of Aorta and Bilateral Lower Extremity Arteries using Low Osmolar Contrast (ICD-10-PCS; principal; 2017-08-04)
DX: I70.212 Atherosclerosis of native arteries of extremities with intermittent claudication, left leg (principal); I70.92 Chronic total occlusion of artery of the extremities; I25.10 Atherosclerotic heart disease of native coronary artery without angina pectoris; I69.392 Facial weakness following cerebral infarction; E78.00 Pure hypercholesterolemia, unspecified; I10 Essential (primary) hypertension; Z85.51 Personal history of malignant neoplasm of bladder; Z91.81 History of falling
CPT/HCPCS: 37221; 75625; 75716; 93005; C1769; C1876; J1644; J2250; J3010; Q9967; J0461

== ENCOUNTER → 2018-05-09 | Outpatient (CLI) | payer OTHER | LOC: CIMAGING 13:16 | PROVIDERS: ATTEND Urology | DX: Z08 Encounter for follow-up examination after completed treatment for malignant neoplasm (principal); Z85.46 Personal history of malignant neoplasm of prostate; K76.89 Other specified diseases of liver; K80.20 Calculus of gallbladder without cholecystitis without obstruction; I70.0 Atherosclerosis of aorta | CPT/HCPCS: 74178; Q9967; 82565-PO ==

== ENCOUNTER → 2018-06-29 | Outpatient (CLI) | payer OTHER | LOC: CIMAGING 15:03 | PROVIDERS: ATTEND Internal Medicine Critical Care Medicine | DX: R91.1 Solitary pulmonary nodule (principal) | CPT/HCPCS: 71250-PO ==